=== PATIENT | male | born 1985 | race Two or more races ===

== ENCOUNTER 2024-09-23 03:29 | Emergency (ER) | payer OTHER ==
[~2024-09-23] VITALS: Ht 172.7 cm; Wt 113.4 kg
[2024-09-23] MEDS ORDERED: ABILIFY20 MG (04:11)
[2024-09-23] MEDS ORDERED: LITHIUM CARBON300 MG (04:11)
[2024-09-23] MEDS ORDERED: WELLBUTRIN XL150 M1 (04:11)
[2024-09-23] MEDS ORDERED: KETOROLAC TROMETHAMINE 60 MG VIAL IM ONE ×2 (05:00→05:31)
[2024-09-23 06:38] LABS: HEMATOCRIT 40.1 % (39.0-48.0); HEMOGLOBIN 13.3 g/dL (13-16.00); MEAN CELL VOLUME 89.9 fL (80.0-100.00); MEAN CORPUSCULAR HEMOGLOBIN 29.7 pg (27.00-32.0); PLATELET COUNT 216 K/uL (150-450); RED BLOOD COUNT 4.46 M/uL (4.00-6.00); RED CELL DISTRIBUTION WIDTH 13.8 % (11.5-14.5)
[2024-09-23 06:46] LABS: BILIRUBIN TOTAL 0.45 mg/dL (0.3-1.2); CALCIUM 9.7 mg/dL (8.5-10.1); CREATININE SERUM 0.85 mg/dL (0.70-1.30); GFR 99.83; POTASSIUM 4.1 mEq/L (3.5-5.1)
== END 2024-09-23 07:50 | disposition home or self-care (01) ==
LOC: ER 03:31
PROVIDERS: General Practice
DX: R10.9 Unspecified abdominal pain (principal)